=== PATIENT | female | born 1985 | race Caucasian/White ===

== ENCOUNTER 2016-12-03 13:41 | Emergency (ER) | payer BC ==
[~2016-12-03 13:41] MED LIST: T PO; ULTRAM50 PO
== END 2016-12-03 14:00 | disposition home or self-care (01) ==
LOC: ER 13:41
DX: M54.16 Radiculopathy, lumbar region (principal); Z88.6 Allergy status to analgesic agent; Z79.899 Other long term (current) drug therapy
CPT/HCPCS: 96372; 99283